=== PATIENT | male | born 1935 | race Caucasian/White ===

== ENCOUNTER 2016-10-03 12:11 | Emergency (ER) | payer MEDICARE, BC, MEDICAID ==
--- NOTE | 2016-10-03 14:22 | Emergency Department Record ---
History of Present Illness - General Chief Complaint: Chest Pain Stated Complaint: CHEST INJURY/FALL Time Seen by Provider: 10/03/16 12:39 Source: Patient, Family Mode of Arrival: Ambulatory Limitations: No limitations - History of Present Illness Initial Comments: pt fell into bathtub yesterday hitting his chest and sternum. granddaughter brought pt in for evaluation. pt reports minimal pain at this time. Onset/Timin -: Days(s) Onset: Other Pain Location: Substernal, Left chest Severity: Mild Severity scale (1-10): 1 Worsens With: Palpation Treatments Prior to Arrival: None - Related Data Home Medications Medication Instructions Recorded Confirmed Last Taken Aspirin [Aspirin EC] 81 mg PO DAILY 02/19/15 10/03/16 1 Day Ago Cyproheptadine HCl 4 mg PO BID 02/19/15 10/03/16 1 Day Ago Folic Acid 1 mg PO DAILY 02/19/15 10/03/16 1 Day Ago Hydrocortisone 0.1 mg PO DAILY 02/19/15 10/03/16 1 Day Ago Ibuprofen [Motrin 600Mg] 600 mg PO Q8H 02/19/15 10/03/16 1 Day Ago Methotrexate Sodium [Methotrexate] 2.5 mg PO DAILY 02/19/15 10/03/16 1 Day Ago Previous Rx's Medication Instructions Recorded Albuterol Sulfate [Proair Hfa] 1 - 2 puff IH .EVERY 4-6 HOURS PRN 02/19/15 #3 inhaler Docusate Sodium [Colace] 100 mg PO QHS #84 cap 05/14/15 Allergies Allergy/AdvReac Type Severity Reaction Status Date / Time No Known Drug Intolerances Allergy Unknown HYPERSENSIT Verified 10/03/16 12:26 IVITY Travel Screening - Travel/Exposure Within Last 30 Days Have you traveled within the last 30 days?: No - Travel/Exposure Within Last Year Have you traveled outside the [place] in the last year?: No - Additonal Travel Details Have you been exposed to anyone with a communicable illness?: No - Travel Symptoms Symptom Screening: None Review of Systems Reviewed: No additional complaints except as noted below Constitutional: Reports: As per HPI. Denies: Chills, Fever, Malaise, Night sweats, Weakness, Weight change Eyes: Reports: As per HPI. Denies: Eye discharge, Eye pain, Photophobia, Vision change ENT: Reports: As per HPI. Denies: Congestion, Dental pain, Ear pain, Epistaxis , Hearing loss, Throat pain Respiratory: Reports: As per HPI. Denies: Cough, Dyspnea, Hemoptysis, Stridor, Wheezes Cardiovascular: Reports: As per HPI. Denies: Arrhythmia, Chest pain, Dyspnea on exertion, Edema, Murmurs, Orthopnea, Palpitations, Paroxysmal nocturnal dyspnea, Rheumatic Fever, Syncope Endocrine: Reports: As per HPI. Denies: Fatigue, Heat or cold intolerance, Polydipsia, Polyuria Gastrointestinal: Reports: As per HPI. Denies: Abdominal pain, Constipation, Diarrhea, Hematemesis, Hematochezia, Melena, Nausea, Vomiting Genitourinary: Reports: As per HPI. Denies: Dysuria, Frequency, Hematuria, Incontinence, Retention, Testicular pain, Testicular mass, Urgency Musculoskeletal: Reports: As per HPI. Denies: Arthralgia, Back pain, Gout, Joint swelling, Myalgia, Neck pain Skin: Reports: As per HPI. Denies: Bruising, Change in color, Change in hair/ nails, Lesions, Pruritus, Rash Neurological: Reports: As per HPI. Denies: Abnormal gait, Confusion, Headache, Numbness, Paresthesias, Seizure, Tingling, Tremors, Vertigo, Weakness Psychiatric: Reports: As per HPI. Denies: Anxiety, Auditory hallucinations, Depression, Homicidal thoughts, Suicidal thoughts, Visual hallucinations Hematological/Lymphatic: Reports: As per HPI. Denies: Anemia, Blood Clots, Easy bleeding, Easy bruising, Swollen glands Past Medical History - SOCIAL HISTORY Smoking Status: Current every day smoker Alcohol Use: None Drug Use: None - RESPIRATORY Hx COPD: Yes Comment:: smoke too much - CARDIOVASCULAR Hx Irregular Heartbeat: Yes (WPW) - NEURO Comment:: [place] - GI Hx GI Disorders: No - Hx Genitourinary Disorders: No - ENDOCRINE Hx Endocrine Disorders: No - MUSCULOSKELETAL Hx Arthritis: Yes - PSYCH Hx Psych Problems: No - HEMATOLOGY/ONCOLOGY Hx Hematology/Oncology Disorders: No Family Medical History Any Significant Family History?: Yes Physical Exam - General General Appearance: Alert, Oriented x3, Cooperative, No acute distress - Head Head exam: Normal inspection - Eye Eye exam: Normal appearance, PERRL, EOMI Pupils: Normal accommodation - ENT ENT exam: Normal exam, Mucous membranes moist, Normal external ear exam, Normal orophraynx, TM's normal bilaterally Ear exam: Normal external inspection. negative: External canal tenderness Nasal Exam: Normal inspection. negative: Discharge, Sinus tenderness Mouth exam: Normal external inspection, Tongue normal Teeth exam: Normal inspection. negative: Dental caries Throat exam: Normal inspection. negative: Tonsillar erythema, Tonsillar exudate - Neck Neck exam: Normal inspection, Full ROM. negative: Tenderness - Respiratory Respiratory exam: Normal lung sounds bilaterally, Chest wall tenderness. negative: Respiratory distress - Cardiovascular Cardiovascular Exam: Regular rate, Normal rhythm, Normal heart sounds - GI/Abdominal GI/Abdominal exam: Soft, Normal bowel sounds. negative: Tenderness - Rectal Rectal exam: Deferred - exam: Deferred - Extremities Extremities exam: Normal inspection, Full ROM, Normal capillary refill. negative: Tenderness - Back Back exam: Reports: Normal inspection, Full ROM. Denies: Muscle spasm, Rash noted, Tenderness - Neurological Neurological exam: Alert, CN II-XII intact, Normal gait, Oriented X3 - Psychiatric Psychiatric exam: Normal affect, Normal mood - Skin Skin exam: Dry, Intact, Normal color, Warm Course Vital Signs 10/03/16 12:18 Temperature 98.3 F Pulse Rate 86 Respiratory 18 Rate Blood Pressure 124/59 Pulse Ox 93 L Medical Decision Making - Management Options MDM Management: Additional Work-up Planned (e.g. ADM/Transfer/OP Study) - Data Complexity [facility] Data: X-Ray Ordered and/or Reviewed - Radiology Data Radiology results: Report reviewed, Image reviewed Disposition Disposition: Discharge Clinical Impression: Lung nodule < 6cm on CT Contusion, chest wall Qualifiers: Encounter type: initial encounter Laterality: left Qualified Code(s): S20.212A - Contusion of left front wall of thorax, initial encounter Disposition: Home, Self-Care Condition: (1) Good Instructions: Contusion in Adults (ED), Pulmonary Nodules (ED) Additional Instructions: follow up with family doctor this week. have ct of chest next week. return sooner if worse Forms: Patient Portal Access
--- NOTE | 2016-10-07 14:50 | RADIOLOGY REPORT ---
EXAM: CHEST AND LEFT RIBS HISTORY: FELL HITTING LEFT CHEST ON BATHTUB, LEFT CHEST PAIN. TECHNIQUE: PA view of the chest and four oblique views of the left ribs were obtained. Comparison: Chest x-ray 03/19/14. Encounter: Initial. FINDINGS: Left sided pacemaker present. Diffuse lung lucency consistent with emphysema. New nodule at the right lung base measuring 16 mm. The left lung is clear. The cardiomediastinal silhouette is top normal in size with tortuous thoracic aorta. Osteopenia compromises bone detail. No obvious acutely displaced left rib fractures. IMPRESSION: 1. EMPHYSEMA WITH NEW 16 MM NODULE AT THE RIGHT LUNG BASE FOR WHICH PRIMARY MALIGNANCY IS NOT EXCLUDED. RECOMMEND NONEMERGENT CHEST CT. 2. THE LEFT LUNG IS CLEAR. 3. NO OBVIOUS ACUTELY DISPLACED LEFT RIB FRACTURES. JOB NUMBER: [id number] MTDD
--- NOTE | 2016-10-07 14:52 | RADIOLOGY REPORT ---
EXAM: STERNUM, TWO VIEWS HISTORY: FALL, CHEST INJURY, STERNAL PAIN. TECHNIQUE: Two views of the sternum were obtained. Comparison: Chest x-ray same day. FINDINGS: Osteopenia compromises bone detail. No gross sternal fracture. IMPRESSION: NEGATIVE STERNUM. JOB NUMBER: [id number] MTDD
== END 2016-10-03 14:24 | disposition home or self-care (01) ==
LOC: ER 12:11
DX: S20.212A Contusion of left front wall of thorax, initial encounter (principal); R91.1 Solitary pulmonary nodule; J44.9 Chronic obstructive pulmonary disease, unspecified; F17.210 Nicotine dependence, cigarettes, uncomplicated; W18.2XXA Fall in (into) shower or empty bathtub, initial encounter; Y92.002 Bathroom of unspecified non-institutional (private) residence as the place of occurrence of the external cause
CPT/HCPCS: 71120; 99283; 99284

== ENCOUNTER 2018-12-31 18:40 | Inpatient (IN) | payer MEDICARE, BC ==
[2018-12-31] MEDS ORDERED: IPRATROPIUM/ALBUTEROL (0.5MG/3MG) NEB INH ONE (18:45)
[2018-12-31] MEDS ORDERED: METHYLPREDNISOLONE PF 125MG/VIAL IVP ONE (18:45)
--- NOTE | 2018-12-31 18:51 | Emergency Department Record ---
History of Present Illness - General Stated Complaint: ELOY Time Seen by Provider: 12/31/18 18:45 Source: Patient, EMS Mode of Arrival: Stretcher Limitations: No limitations - History of Present Illness Initial Comments: 83 yo male with a significant past medical history for COPD presents to ED for evaluation of difficulty in breathing that began this morning. Patient denies home oxygen use, was found to be 80% at home. Patient did receive albuterol prior to arrival via EMS with improvement in his symptoms. Patient denies fevers, chills, or productive cough symptoms. Patient does not know who his PCP is in [place]. MD Complaint: Shortness of breath Onset/Timin -: Days(s) Severity: Moderate Consistency: Constant Improves With: Nothing Worsens With: Nothing Known History Of: COPD Associated Symptoms: Denies other symptoms Treatments Prior to Arrival: Bronchodilator - Related Data Home Oxygen Therapy: No Allergies Allergy/AdvReac Type Severity Reaction Status Date / Time No Known Drug Intolerances Allergy Unknown HYPERSENSIT Verified 12/31/18 18:49 IVITY Review of Systems Constitutional: Denies: Chills, Fever, Malaise, Night sweats Eyes: Denies: Eye discharge, Eye pain ENT: Denies: Congestion, Ear pain, Epistaxis Respiratory: Reports: Dyspnea. Denies: Hemoptysis Cardiovascular: Reports: Dyspnea on exertion. Denies: Chest pain, Edema Endocrine: Denies: Fatigue, Heat or cold intolerance Gastrointestinal: Denies: Abdominal pain, Nausea, Vomiting Genitourinary: Denies: Testicular pain, Testicular mass Musculoskeletal: Denies: Arthralgia, Back pain Skin: Denies: Bruising, Change in color Neurological: Denies: Abnormal gait, Confusion, Headache, Tingling, Tremors Psychiatric: Denies: Anxiety Hematological/Lymphatic: Denies: Anemia, Blood Clots Past Medical History - SOCIAL HISTORY Smoking Status: Current every day smoker Drug Use: None - RESPIRATORY Hx COPD: Yes Comment:: smoke too much - CARDIOVASCULAR Hx Irregular Heartbeat: Yes (WPW) - NEURO Comment:: [place] - GI Hx GI Disorders: No - Hx Genitourinary Disorders: No - ENDOCRINE Hx Endocrine Disorders: No - MUSCULOSKELETAL Hx Arthritis: Yes - PSYCH Hx Psych Problems: No - HEMATOLOGY/ONCOLOGY Hx Hematology/Oncology Disorders: No Physical Exam - General General Appearance: Alert, Oriented x3, Cooperative, Mild distress, Other ( Patient appears tachypnic, shallow breathing) Limitations: Other (Hard of hearing) - Head Head exam: Atraumatic, Normocephalic, Normal inspection Head exam detail: negative: Abrasion, Contusion, Jansen's sign, General tenderness, Hematoma, Laceration - Eye Eye exam: Normal appearance. negative: Conjunctival injection, Periorbital swelling, Periorbital tenderness, Scleral icterus - ENT Ear exam: negative: Auricular hematoma, Auricular trauma Nasal Exam: negative: Active bleeding, Discharge, Dried blood, Foreign body Mouth exam: negative: Drooling, Laceration, Muffled voice, Tongue elevation - Neck Neck exam: Normal inspection. negative: Tenderness - Respiratory Respiratory exam: Decreased breath sounds, Respiratory distress. negative: Prolonged expiratory, Rhonchi, Stridor, Wheezes - Cardiovascular Cardiovascular Exam: Regular rate, Normal rhythm, Normal heart sounds - GI/Abdominal GI/Abdominal exam: Soft. negative: Distended, Rebound, Rigid, Tenderness - Rectal Rectal exam: Deferred - exam: Deferred - Extremities Extremities exam: Normal inspection. negative: Pedal edema, Tenderness - Back Back exam: Denies: CVA tenderness (R), CVA tenderness (L) - Neurological Neurological exam: Alert, Normal gait, Oriented X3 - Psychiatric Psychiatric exam: Normal affect, Normal mood - Skin Skin exam: Normal color. negative: Abrasion Type of lesion: negative: abrasion Course - Reevaluation(s) Reevaluation #1: 12/31/18 19:02 EKG: Sinus tachycardia 108 LAD, RBBB ST changes V4-V5 Reevaluation #2: 12/31/18 19:34 Laboratory studies were reviewed and are grossly unremarkable for an acute process excpet: WBC 13.0, Glucose 206. CXR reviewed appears c/w COPD, RLL infiltrate. Zithromax and Rocephin ordered to infuse. Will admit for further evaluation at this time. Reevaluation #3: 12/31/18 19:52 Case was discussed with Yudy Triana NP, will accept admission at this time. Patient and his family members were updated on all results and the plan for admission as well. Medical Decision Making - Lab Data Result diagrams: 12/31/18 19:00 12/31/18 19:00 Disposition Disposition: Admit Clinical Impression: COPD exacerbation CAP (community acquired pneumonia) Qualifiers: Laterality: right Lung location: lower lobe of lung Qualified Code(s): J18.1 - Lobar pneumonia, unspecified organism Disposition: Still a Patient at [facility] Decision to Admit: Admit from ER Decision to Admit Date: 12/31/18 Decision to Admit Time: 19:36 Condition: (2) Stable Time of Disposition: 19:36 Quality - Quality Measures Quality Measures: N/A - Blood Pressure Screening Does Patient Have Any of the Following: No Blood Pressure Classification: Pre-Hypertensive BP Reading Systolic Measurement: 121 Diastolic Measurement: 63 Screening for High Blood Pressure: < Pre-Hypertensive BP, F/U Documented > [ [id number]] Pre-Hypertensive Follow-up Interventions: Referral to alternative/primary care provider.
[2018-12-31 19:10] LABS: HEMATOCRIT 42.5 % (42.0-52.0); HEMOGLOBIN 13.7 gm/dl (14.0-18.0); MEAN CELL VOLUME 102.2 fl (81-97); MEAN CORPUSCULAR HEMOGLOBIN 32.9 pg (27-33); MEAN CORPUSCULAR HGB CONC 32.2 g/dl (32-36); MEAN PLATELET VOLUME 11.7 fl (7.4-10.4); PLATELET COUNT 222 K/uL (130-400); RED BLOOD COUNT 4.16 M/uL (4.40-5.70); RED CELL DISTRIBUTION WIDTH 16.3 % (11.5-14.5)
[2018-12-31 19:21] LABS: BLOOD UREA NITROGEN 17 mg/dL (8-23); CREATININE 0.8 mg/dL (0.7-1.2); EST GLOMERULAR FILTRATION RATE > 60 mL/min
[2018-12-31 19:22] LABS: TOTAL PROTEIN 6.7 g/dL (6.6-8.7)
[2018-12-31 19:24] LABS: GLUCOSE,RANDOM 206 mg/dL (74-109)
[2018-12-31 19:26] LABS: ALBUMIN 3.4 g/dL (4.0-5.0); ALT/SGPT 9 U/L (<41); AST/SGOT 17 U/L (10.0-50.0)
[2018-12-31 19:27] LABS: ALKALINE PHOSPHATASE 63 U/L (40-129)
[2018-12-31] MEDS ORDERED: CEFTRIAXONE 1GM/50ML BAG 1 GM/50 ML BAG IVPB ONE (19:35)
[2018-12-31] MEDS ORDERED: AZITHROMYCIN 500 MG in 0.9 % SODIUM CHLORIDE 250ML 250 ML IVPB ONE (19:35)
[2018-12-31] MEDS ORDERED: ALBUTEROL SULFATE (0.083%) 2.5 MG/3 ML NEB INH PRN (20:41)
[2018-12-31] MEDS ORDERED: HYDROCODONE/APAP 7.5/325MG TABLET PO PRN (20:41)
[2018-12-31] MEDS ORDERED: ACETAMINOPHEN 500 MG TABLET PO PRN (20:41)
[2018-12-31] MEDS: 0.9 % SODIUM CHLORIDE 1000ML 1,000 ML IV PRN (21:28)
[2018-12-31] MEDS ORDERED: ATENOLOL 50 MG TABLET PO SCH (22:00)
[2018-12-31] MEDS: IPRATROPIUM/ALBUTEROL (0.5MG/3MG) NEB INH SCH (22:09)
[2019-01-01] MEDS: IPRATROPIUM/ALBUTEROL (0.5MG/3MG) NEB INH SCH ×5 (06:06→21:47)
[2019-01-01] MEDS: 0.9 % SODIUM CHLORIDE 1000ML 1,000 ML IV PRN ×2 (08:13→17:02)
[2019-01-01] MEDS: ATENOLOL 50 MG PO SCH ×2 (09:53→21:26)
[2019-01-01] MEDS: NICOTINE 21 MG/24 HOUR PATCH TD SCH (09:53)
[2019-01-01] MEDS ORDERED: METHYLPREDNISOLONE PF 125MG/VIAL IVP SCH (10:00)
[2019-01-01] MEDS ORDERED: AZITHROMYCIN 500 MG in 0.9 % SODIUM CHLORIDE 250ML 250 ML IVPB SCH (20:00)
--- NOTE | 2019-01-01 20:08 | History & Physical ---
History of Present Illness - Date of Service Date of Service for History & Physical: 01/01/19 - History of Present Illness Admitting Diagnosis: CAP. COPD. Hypoxia History of Present Illness: Alok Stone is an 83 y/o male brought to ED via EMS for disorientation, ELOY and hypoxia. Patient has a significant history of COPD and is a current every day smoker. Denies using home O2. Is a poor historian, information gathered with the help of his son Brice Stone. Past medical history includes COPD, current every day smoker, [place], WPW, OA. While in the ED SPO2 88% on 3L, WBC 13, CMP unremarkable besides glucose 206, AST/ALT normal, CXR RLL infiltrate and emphysematous changes. EKG LAD, RBBB. Admitted for IV antibiotics, oxygen supplementation, and case management. 01/01/19 0900: Patient resting comfortably in bed, in no distress. Currently on RA SPO2 92-94%. Does not remember coming to the ER or why. Is alert and oriented to person and place only. Is unable to give any medical history. 01/01/19 1100: Spoke with son Brice Stone ([phone]). Brice is DPOA for financial. Brice reports patient lives alone, "smokes like a chimney", and has been very depressed, more negative, and taking less care of himself over the last 2 weeks. He does state he has had short term memory issues for some time but has significantly worsened over the last 2 weeks. When he was at his house a few days prior he noted how unkept he was and needed a shower. Also spoke with daughter, Nasreen Martinez, who is the DPOA for medical issues and confirms what Brice has been describing. To her knowledge noone has deemed her dad incompetent to make his own decisions and has been doing ok living alone until the last 2 weeks. Is concerned regarding how safe discharging home alone will be. Parish Stone is a child ([phone]) as well as Emily Stone. He arrived with 2 medication bottles, Atenolol and Methotrexate. PCP: Dr Devan Gillette Cardiology: Dr Domínguez Travel Screening - Travel/Exposure Within Last 30 Days Have you traveled within the last 30 days?: No - Travel/Exposure Within Last Year Have you traveled outside the [place] in the last year?: No - Additonal Travel Details Have you been exposed to anyone with a communicable illness?: No - Travel Symptoms Symptom Screening: Weakness, Fatigue Review of Systems Constitutional: Denies: Chills, Fever, Malaise, Night sweats Eyes: Denies: Eye discharge, Eye pain ENT: Denies: Congestion, Ear pain, Epistaxis Respiratory: Denies: Dyspnea, Hemoptysis Cardiovascular: Denies: Chest pain, Dyspnea on exertion, Edema Endocrine: Denies: Fatigue, Heat or cold intolerance Gastrointestinal: Denies: Abdominal pain, Nausea, Vomiting Genitourinary: Denies: Testicular pain, Testicular mass Musculoskeletal: Denies: Arthralgia, Back pain Skin: Denies: Bruising, Change in color Neurological: Denies: Abnormal gait, Confusion, Headache, Tingling, Tremors Psychiatric: Denies: Anxiety Hematological/Lymphatic: Denies: Anemia, Blood Clots Past Medical History - SOCIAL HISTORY Smoking Status: Current every day smoker - RESPIRATORY Hx Respiratory Disorders: Yes Hx COPD: Yes Comment:: smoke too much - CARDIOVASCULAR Hx Cardio Disorders: Yes Hx Irregular Heartbeat: Yes (WPW) - NEURO Hx Neuro Disorders: Yes Comment:: [place] - GI Hx GI Disorders: No - Hx Genitourinary Disorders: No - ENDOCRINE Hx Endocrine Disorders: No - MUSCULOSKELETAL Hx Musculoskeletal Disorders: Yes Hx Arthritis: Yes - PSYCH Hx Psych Problems: No - HEMATOLOGY/ONCOLOGY Hx Hematology/Oncology Disorders: No Family Medical History Any Significant Family History?: No H&P Meds/Allergies - Allergies Allergies: Allergies Allergy/AdvReac Type Severity Reaction Status Date / Time No Known Drug Intolerances Allergy Unknown HYPERSENSIT Verified 12/31/18 18:49 IVITY - Active Medications Active Medications: Current Medications Acetaminophen (Tylenol 500mg Tab) 1,000 mg PO Q6H PRN PRN Reason: PAIN - MILD(1-4)/FEVER Hydrocodone Bitart/Acetaminophen ([place] 7.5mg/325mg) 1 each PO BID PRN PRN Reason: PAIN - MOD TO SEVERE (5-10) Albuterol Sulfate (Albuterol Sulfate) 2.5 mg INH RESP.Q2H PRN PRN Reason: DIFFICULTY IN BREATHING Albuterol/Ipratropium (Duoneb) 3 ml INH RESP.Q4H.[facility] Admin: 01/01/19 18:05 Dose: 3 ml Sodium Chloride () 1,000 mls @ 100 mls/hr IV .Q10H PRN PRN Reason: LARGE VOLUME IV Last Admin: 01/01/19 17:02 Dose: 100 mls/hr Azithromycin 500 mg/ Sodium (Chloride) 250 mls @ 250 mls/hr IVPB Q24H [facility] Stop: 01/06/19 20:01 Ceftriaxone Sodium 1 gm/ (Sodium Chloride) 100 mls @ 100 mls/hr IVPB Q24H [facility] Stop: 01/06/19 21:01 Methylprednisolone Sodium Succinate (Solu-Medrol) 125 mg IVP DAILY [facility] Last Admin: 01/01/19 09:53 Dose: 125 mg Nicotine (Nicotine 21mg) 1 patch TD DAILY [facility] Last Admin: 01/01/19 09:53 Dose: 1 patch Patient Own Med: Methotrexate 2.5 Mg Tab 8 each PO WEEKLY [facility] Patient Own Med: (Atenolol 50 Mg Tab) 1 each PO BID [facility] Last Admin: 01/01/19 09:53 Dose: 1 each Physical Exam - Vital Signs Vital Signs: Vital Signs - Last 24 Hrs Temp Pulse Pulse Resp BP BP Pulse Ox 01/01/19 18:05 74 18 92 L 01/01/19 16:00 98.1 F 74 16 100/57 94 L 01/01/19 13:55 71 18 92 L 01/01/19 09:52 70 18 93 L 01/01/19 08:59 24 01/01/19 08:00 97.3 F L 74 16 107/47 93 L 01/01/19 06:06 70 20 96 01/01/19 06:00 97.6 F 73 18 98/61 91 L 12/31/18 22:10 77 24 96 12/31/18 21:31 103/58 12/31/18 21:00 77 24 12/31/18 20:25 98.1 F 97 H 22 94/49 95 - General General Appearance: Alert, Oriented x3, Cooperative Limitations: Other (Hard of hearing) - Head Head exam: Atraumatic, Normocephalic, Normal inspection Head exam detail: negative: Abrasion, Contusion, Jansen's sign, General tenderness, Hematoma, Laceration - Eye Eye exam: Normal appearance. negative: Conjunctival injection, Periorbital swelling, Periorbital tenderness, Scleral icterus - ENT Ear exam: negative: Auricular hematoma, Auricular trauma Nasal Exam: negative: Active bleeding, Discharge, Dried blood, Foreign body Mouth exam: negative: Drooling, Laceration, Muffled voice, Tongue elevation - Neck Neck exam: Normal inspection. negative: Tenderness - Respiratory Respiratory exam: Decreased breath sounds. negative: Prolonged expiratory, Respiratory distress, Rhonchi, Stridor, Wheezes - Cardiovascular Cardiovascular Exam: Regular rate, Normal rhythm, Normal heart sounds Peripheral Pulses: 2+: Dorsalis Pedis (R), Dorsalis Pedis (L) - GI/Abdominal GI/Abdominal exam: Soft, Normal bowel sounds. negative: Distended, Rebound, Rigid, Tenderness - Rectal Rectal exam: Deferred - exam: Deferred - Extremities Extremities exam: Normal inspection. negative: Pedal edema, Tenderness - Back Back exam: Denies: CVA tenderness (R), CVA tenderness (L) - Neurological Neurological exam: Alert, Normal gait, Other (oriented to person and place only) - Psychiatric Psychiatric exam: Normal affect, Normal mood - Skin Skin exam: Normal color. negative: Abrasion Type of lesion: negative: abrasion Results - Labs Result Diagrams: 12/31/18 19:00 12/31/18 19:00 - Imaging and Cardiology Chest x-ray Status: Report reviewed (right lower lobe infiltrate, emphysematous changes) VTE H&P Assessment - Risk for VTE Risk for VTE: Yes Risk Level: Moderate Risk Assessment Date: 01/01/19 Risk Assessment Time: 20:29 VTE Orders Placed or Will Be Placed: Yes Plan - Inpatient Certification Inpatient Certification: Admit to inpatient care: Based on my medical assessment, after consideration of patient's risk factors (age, co-morbidities and patient presenting symptoms and acuity), I expect that this patient will remain in the hospital greater than or equal to two midnights and that the services needed warrant inpatient care because: Patient Risk Factors: [advanced age, cognitive impairment] Estimated length of stay: []48-72 hours The patient may reasonably be expected to be discharged or transferred to a hospital within 96 hours after admission to [facility]. Services needed: [IV antibiotics, supplemental oxygen, case management] Post hospital care (if known): [] I certify that my determination is in accordance with my understanding of Medicare requirements for reasonable and necessary inpatient services. 01/01/19 20:29 - Detailed Diagnosis and Plan (1) Right lower lobe pneumonia Current Visit: Yes Status: Acute Qualifiers: Pneumonia type: due to unspecified organism Qualified Code(s): J18.1 - Lobar pneumonia, unspecified organism Base Code: J18.1 - LOBAR PNEUMONIA, UNSPECIFIED ORGANISM Comment: 01/01/19 - CXR right lower lobe infiltrate, emphysematous changes - Does not use home O2 - Rocephin 1gm BID and Azithromycin 500mg QD - Supplemental oxygen to keep 88-92% - Solumedrol 125mg QD, will transition to PO in the am - Albuterol 2.5mg Q2hr PRN - Duoneb Q4hr WA - Telemetry- NSR, RBBB (2) COPD exacerbation Current Visit: No Status: Acute Base Code: J44.1 - CHRONIC OBSTRUCTIVE PULMONARY DISEASE W (ACUTE) EXACERBATION Comment: 01/01/19 - See above (3) Cognitive impairment Current Visit: Yes Status: Acute Base Code: R41.89 - OTH SYMPTOMS AND SIGNS W COGNITIVE FUNCTIONS AND AWARENESS Comment: 01/01/19 - Multifactoral- most likely vascular in nature from smoking history, emphysea, and acute illness - Does have medical and financial DPOA. Will need to assess cognition further after 24 hours of treatment to see if any improvement - May need 2 provider statement for incompacitation - Case management referral - Will have family bring in all his medication bottles for a full reconcilliation (4) Full code status Current Visit: Yes Status: Acute Base Code: Z78.9 - OTHER SPECIFIED HEALTH STATUS Comment: 01/01/19 (5) DVT prophylaxis Current Visit: Yes Status: Acute Base Code: [id number] - Comment: 01/01/19 - Nursing to encourage frequent ambulation
[2019-01-01] MEDS ORDERED: CEFTRIAXONE SODIUM 1 GM in 0.9 % SODIUM CHLORIDE 100ML 100 ML IVPB SCH (21:00)
[2019-01-01] MEDS ORDERED: ATENOLOL 50 MG TABLET PO SCH (22:00)
[2019-01-02] MEDS: IPRATROPIUM/ALBUTEROL (0.5MG/3MG) NEB INH SCH ×2 (05:59→10:43)
[2019-01-02 06:50] LABS: BASO % 0.1 % (0-6); EOS % 0.1 % (0-6); HEMATOCRIT 36.7 % (42.0-52.0); HEMOGLOBIN 11.1 gm/dl (14.0-18.0); LYMPH % 2.8 % (16-45); MEAN CORPUSCULAR HEMOGLOBIN 31.4 pg (27-33); MEAN CORPUSCULAR HGB CONC 30.2 g/dl (32-36); MEAN PLATELET VOLUME 11.2 fl (7.4-10.4); MONO % 4.3 % (0-9); PLATELET COUNT 187 K/uL (130-400); RED BLOOD COUNT 3.53 M/uL (4.40-5.70); RED CELL DISTRIBUTION WIDTH 16.2 % (11.5-14.5); WHITE BLOOD COUNT W/O DIFF 19.2 K/uL (4.2-12.2)
[2019-01-02 07:08] LABS: BLOOD UREA NITROGEN 15 mg/dL (8-23); CREATININE 0.6 mg/dL (0.7-1.2); EST GLOMERULAR FILTRATION RATE > 60 mL/min; GLUCOSE,RANDOM 113 mg/dL (74-109)
[2019-01-02 07:33] LABS: ANISOCYTOSIS 1+; PLATELET ESTIMATE NORMAL (NORMAL)
[2019-01-02] MEDS ORDERED: PREDNISONE 20 MG TAB PO SCH (08:00)
--- NOTE | 2019-01-02 08:28 | RADIOLOGY REPORT ---
EXAM: CHEST HISTORY: PATIENT HAS COPD. DIFFICULTY BREATHING. TECHNIQUE: A single AP portable view of the chest was provided along with the comparison study dated 10/03/16. FINDINGS: The cardiomediastinal silhouette is within normal limits for size and contour. Left anterior chest wall pacemaker is unchanged with respect to the prior examination. Tortuosity of the thoracic aorta is noted. Emphysematous changes are identified bilaterally. In the interval there has been the developmental of a right lower lobe interstitial infiltrate. This finding suggests superimposed pneumonia. IMPRESSION: RIGHT LOWER LOBE INTERSTITIAL INFILTRATE IS SUSPECTED DISCUSSED ABOVE. PNEUMONIA IS SUSPECTED. FOLLOW-UP PA AND LATERAL VIEWS OF THE CHEST CAN BE OBTAINED UNTIL RESOLUTION OF FINDINGS. JOB NUMBER: [id number] [facility]
[2019-01-02] MEDS: NICOTINE 21 MG/24 HOUR PATCH TD SCH (09:20)
[2019-01-02] MEDS: ATENOLOL 50 MG PO SCH (09:23)
[2019-01-02] MEDS ORDERED: METHOTREXATE 2.5 MG PO SCH (10:00)
--- NOTE | 2019-01-02 10:25 | Discharge Summary ---
Providers Discharge Summary Date: 01/02/19 Date of admission: 12/31/18 19:58 Expected Date of Discharge: 01/02/19 Attending physician: SANDRA ROMAN Consults: Consult Orders 01/01/19 12:31 Consult - Case Management Now Comment: Reason For Exam: safety of pt at home-lives alone-some dementia Physical Exam - Vital Signs Vital Signs: Vital Signs - Last 24 Hrs Temp Pulse Pulse Resp BP Pulse Ox 01/02/19 08:30 20 01/02/19 08:00 97.6 F 68 16 120/76 92 L 01/02/19 05:59 80 20 93 L 01/01/19 21:47 88 20 92 L 01/01/19 21:45 98.4 F 91 H 18 105/53 93 L 01/01/19 20:40 74 18 01/01/19 18:05 74 18 92 L 01/01/19 16:00 98.1 F 74 16 100/57 94 L 01/01/19 13:55 71 18 92 L - General General Appearance: Alert, Oriented x3, Cooperative Limitations: Other (Hard of hearing) - Head Head exam: Atraumatic, Normocephalic, Normal inspection Head exam detail: negative: Abrasion, Contusion, Jansen's sign, General tenderness, Hematoma, Laceration - Eye Eye exam: Normal appearance. negative: Conjunctival injection, Periorbital swelling, Periorbital tenderness, Scleral icterus - ENT Ear exam: negative: Auricular hematoma, Auricular trauma Nasal Exam: negative: Active bleeding, Discharge, Dried blood, Foreign body Mouth exam: negative: Drooling, Laceration, Muffled voice, Tongue elevation - Neck Neck exam: Normal inspection. negative: Tenderness - Respiratory Respiratory exam: Decreased breath sounds. negative: Prolonged expiratory, Respiratory distress, Rhonchi, Stridor, Wheezes - Cardiovascular Cardiovascular Exam: Regular rate, Normal rhythm, Normal heart sounds Peripheral Pulses: 2+: Dorsalis Pedis (R), Dorsalis Pedis (L) - GI/Abdominal GI/Abdominal exam: Soft, Normal bowel sounds. negative: Distended, Rebound, Rigid, Tenderness - Rectal Rectal exam: Deferred - exam: Deferred - Extremities Extremities exam: Normal inspection. negative: Pedal edema, Tenderness - Back Back exam: Denies: CVA tenderness (R), CVA tenderness (L) - Neurological Neurological exam: Alert, Normal gait, Other (oriented to person and place only) - Psychiatric Psychiatric exam: Normal affect, Normal mood - Skin Skin exam: Normal color. negative: Abrasion Type of lesion: negative: abrasion Hospitalization - Hospitalization Admission Diagnosis: CAP. COPD. Hypoxia - Problem List/Discharge Diagnosis (1) Right lower lobe pneumonia Status: Acute Discharge Diagnosis: Pneumonia type: due to unspecified organism Qualified Code(s): J18.1 - Lobar pneumonia, unspecified organism Base Code: J18.1 - LOBAR PNEUMONIA, UNSPECIFIED ORGANISM Comment: 01/02/19 - CXR right lower lobe infiltrate, emphysematous changes - Does not use home O2 - Rocephin 1gm BID and Azithromycin 500mg QD - Supplemental oxygen to keep 88-92% - Solumedrol 125mg QD, will transition to PO in the am - Albuterol 2.5mg Q2hr PRN - Duoneb Q4hr WA - Telemetry- NSR, RBBB (2) COPD exacerbation Status: Acute Base Code: J44.1 - CHRONIC OBSTRUCTIVE PULMONARY DISEASE W ( ACUTE) EXACERBATION Comment: 01/02/19 - See above (3) Cognitive impairment Status: Acute Base Code: R41.89 - OTH SYMPTOMS AND SIGNS W COGNITIVE FUNCTIONS AND AWARENESS Comment: 01/02/19 - Multifactoral- most likely vascular in nature from smoking history, emphysea, and acute illness - Does have medical and financial DPOA. Will need to assess cognition further after 24 hours of treatment to see if any improvement - May need 2 provider statement for incompacitation - Case management referral - Will have family bring in all his medication bottles for a full reconcilliation (4) Full code status Status: Acute Base Code: Z78.9 - OTHER SPECIFIED HEALTH STATUS Comment: 01/02 (5) DVT prophylaxis Status: Acute Base Code: [id number] - Comment: 01/02/19 - Nursing to encourage frequent ambulation - Hospitalization Course Disposition: Home Health Service Hospital Course: Alok Stone is an 83 y/o male brought to ED via EMS for disorientation, ELOY and hypoxia. Patient has a significant history of COPD and is a current every day smoker. Denies using home O2. Is a poor historian, information gathered with the help of his son Brice Stone. Past medical history includes COPD, current every day smoker, IROQUOIS, WPW, OA. While in the ED SPO2 88% on 3L, WBC 13, CMP unremarkable besides glucose 206, AST/ALT normal, CXR RLL infiltrate and emphysematous changes. EKG LAD, RBBB. Admitted for IV antibiotics, oxygen supplementation, and case management. 01/01/19 0900: Patient resting comfortably in bed, in no distress. Currently on RA SPO2 92-94%. Does not remember coming to the ER or why. Is alert and oriented to person and place only. Is unable to give any medical history. 01/01/19 1100: Spoke with son Brice Stone ([phone]). Brice is DPOA for financial. Brice reports patient lives alone, "smokes like a chimney", and has been very depressed, more negative, and taking less care of himself over the last 2 weeks. He does state he has had short term memory issues for some time but has significantly worsened over the last 2 weeks. When he was at his house a few days prior he noted how unkept he was and needed a shower. Also spoke with daughter, Nasreen Martinez, who is the DPOA for medical issues and confirms what Brice has been describing. To her knowledge noone has deemed her dad incompetent to make his own decisions and has been doing ok living alone until the last 2 weeks. Is concerned regarding how safe discharging home alone will be. Parish Stone is a child ([phone]) as well as Emily Stone. He arrived with 2 medication bottles, Atenolol and Methotrexate. 01/02/19: Hospital course unremarkable, responded well to treatment. Does have good family support at home. Strong discharge in place- see case management notes. PCP: Dr Devan Gillette Cardiology: Dr Domínguez Procedures: Imaging and X-Rays 12/31/18 18:45 CHEST 1 VIEW [RAD] Stat Cardiology Procedures 12/31/18 18:46 EKG NOW 12/31/18 20:41 Guidance Services Coordinator .Continuous Abnormal Labs: Abnormal Lab Results 12/31/18 12/31/18 01/02/19 Range/Units 19:00 19:00 06:15 WBC 13.0 H 19.2 H (4.2-12.2) K/uL RBC 4.16 L 3.53 L (4.40-5.70) M/uL Hgb 13.7 L 11.1 L (14.0-18.0) gm/dl Hct 36.7 L (42.0-52.0) % MCV 102.2 H 104.0 H (81-97) fl MCHC 30.2 L (32-36) g/dl RDW 16.3 H 16.2 H (11.5-14.5) % MPV 11.7 H 11.2 H (7.4-10.4) fl Neutrophils % 95.0 H (47-80) % Lymphocytes % 2.8 L (16-45) % Lymphocytes 8.0 L 2.0 L (16-45) % Monocytes 10.0 H (0-9) % Creatinine (0.7-1.2) mg/dL Random Glucose 206 H (74-109) mg/dL Calcium (8.8-10.2) mg/dL Albumin 3.4 L (4.0-5.0) g/dL Albumin/Globulin Ratio 1.0 L (1.1-1.8) 01/02/19 Range/Units 06:15 WBC (4.2-12.2) K/uL RBC (4.40-5.70) M/uL Hgb (14.0-18.0) gm/dl Hct (42.0-52.0) % MCV (81-97) fl MCHC (32-36) g/dl RDW (11.5-14.5) % MPV (7.4-10.4) fl Neutrophils % (47-80) % Lymphocytes % (16-45) % Lymphocytes (16-45) % Monocytes (0-9) % Creatinine 0.6 L (0.7-1.2) mg/dL Random Glucose 113 H (74-109) mg/dL Calcium 8.6 L (8.8-10.2) mg/dL Albumin (4.0-5.0) g/dL Albumin/Globulin Ratio (1.1-1.8) Condition at Discharge: (2) Stable Discharge Medications - Discharge Medications Prescriptions: Azithromycin 250 mg PO DAILY #4 tablet Prednisone [Prednisone 20Mg] 50 mg PO DAILYWM 5 Days #62.5 tab Home Medications: Ambulatory Orders Methotrexate Sodium [Methotrexate] 20 mg PO DAILY 02/19/15 [Last Taken 12/30/18] Acetaminophen [Tylenol 500Mg Tab] 1,000 mg PO Q6H PRN tablet 01/02/19 [Last Taken Unknown] Azithromycin 250 mg PO DAILY #4 tablet 01/02/19 [Last Taken Unknown] Prednisone [Prednisone 10Mg] 10 mg PO DAILY #0 01/02/19 [Last Taken Unknown] Prednisone [Prednisone 20Mg] 50 mg PO DAILYWM 5 Days #62.5 tab 01/02/19 [Last Taken Unknown] Discharge Plan - Discharge Instructions Activity at Discharge: Increase Activity as Tolerated Diet at Discharge: Regular Diet Instructions: Viral Pneumonia (DC), Community Acquired Pneumonia (DC) Additional Instructions: -[facility] will see you at home. They are available 29/03 by phone at [phone]. -A referral has been made to the [address] [facility] for the Medicaid Waiver program. They will contact you if you qualify for services. [place] [address] can be contacted at [phone]. -A referral has been made to [facility] on [facility] for in-home chore assistance. They will contact you if you qualify for services. [facility] on Aging can be contacted at [phone] -Please see your PCP, Devan Gillette, within one week of discharge. Quality Measures - Quality Measures Quality Measures: Advance Directives, Documentation of Current Medications in Medical Record, Elder Maltreatment Screen and Follow-Up Plan, Screening for High Blood Pressure and F/U Documented - Current Medications Quality Measure: Measure #130: Documentation of Current Medications Documentation of Current Medications: <Current Medications Documented/Reviewed> [J5517] - Blood Pressure Screening Quality Measure: Screening for High Blood Pressure and Follow-Up Documented Does Patient Have Any of the Following: No, Active Dx of HTN Blood Pressure Classification: Normal BP Reading Systolic Measurement: 103 Diastolic Measurement: 58 Screening for High Blood Pressure: < Normal BP, F/U Not Required > [P3117] - Advance Directives Quality Measure: Measure #47: Care Plan Advance Directives Established: No Advance Directives Information Provided To Patient: No Advance Directives on File: No Living Will: Yes Power of Receptionist Airline Lounge: Yes Power of Receptionist Airline Lounge Name: russ Roger Advance Care Planning: <Care Plan/Decision Maker Documented; Discussed & Documented> [0364F] - Elder Abuse Suspicion Index Screening: Elder Abuse Suspicion Index Screening Rely on people for bathing, dressing, shopping, banking, etc: Yes Prevented from getting food, clothes, medication, etc: No Made to feel shamed or threatened by someone: No Forced to sign papers or use money against will: No Feel afraid, touched in ways not wanted or hurt physically: No Poor eye contact, withdrawn, malnourished, cuts or bruises: No Screening Result: Negative result EASI Reference Information: Praveena BLUE, Karen C, Elva Enamorado, Nenita Leach.Development and validation of a tool to assist physicians identification of elder abuse: The Elder Abuse Suspicion Index (EASI ). Journal of Elder Abuse and Neglect, 2008; 20 (3): 276-300. - Elder Maltreatment Screen Quality Measures: Elder Maltreatment Screen and Follow-Up Plan Elder Maltreatment Screen: <Negative, No Follow-Up Plan Required> [G8734]
[2019-01-02] MEDS ORDERED: CEFTRIAXONE 1GM/50ML BAG 1 GM/50 ML BAG IVPB SCH (20:00)
== END 2019-01-02 11:15 | disposition home health service (06) | DRG 194 ==
LOC: ER 18:40 → MEDSURG 19:58
PROVIDERS: ADMIT Internal Medicine; ATTEND Internal Medicine
DX: J18.9 Pneumonia, unspecified organism (principal); J44.1 Chronic obstructive pulmonary disease with (acute) exacerbation; R09.02 Hypoxemia; R41.89 Other symptoms and signs involving cognitive functions and awareness; Z91.14 Patient's other noncompliance with medication regimen; H91.90 Unspecified hearing loss, unspecified ear; I45.6 Pre-excitation syndrome; M19.90 Unspecified osteoarthritis, unspecified site; Z95.0 Presence of cardiac pacemaker; F17.210 Nicotine dependence, cigarettes, uncomplicated; Z66 Do not resuscitate
CPT/HCPCS: 71045; 80048; 80053; 84145; 84484; 85027; 93005; 93010; 94640; 94760; 94761; 96374; 96375; 99223; 99239; 99285; J0456; J0696; J2930; J7050; J7512

== ENCOUNTER 2019-02-15 18:55 | Emergency (ER) | payer MEDICARE, BC ==
[2019-02-15] MEDS ORDERED: 0.9 % SODIUM CHLORIDE 1,000 ML BAG IV ONE (19:07)
--- NOTE | 2019-02-15 19:13 | Emergency Department Record ---
History of Present Illness - General Chief complaint: Rectal bleeding Stated complaint: RECTAL BLEEDING Time Seen by Provider: 02/15/19 18:59 Source: Patient, Family, EMS Mode of Arrival: EMS Limitations: No limitations - History of Present Illness Initial comments: pt brought in for large rectal bleed tonight. he got up fot dinner and relative heard a thud in the bathroom and found him on the floor with a large amt of blood and clots. MD complaint: Gross hematochezia Quality: Painless Consistency: Intermittent Worsens with: Bowel movement Associated Symptoms: Weakness - Related Data Home Medications Medication Instructions Recorded Confirmed Last Taken Escitalopram Oxalate [Lexapro] 10 mg PO DAILY 02/15/19 02/15/19 02/15/19 Previous Rx's Medication Instructions Recorded Acetaminophen [Tylenol 500Mg Tab] 1,000 mg PO Q6H PRN tablet 01/02/19 Azithromycin 250 mg PO DAILY #4 tablet 01/02/19 Prednisone [Prednisone 10Mg] 10 mg PO DAILY #0 01/02/19 Prednisone [Prednisone 20Mg] 50 mg PO DAILYWM 5 Days #62.5 tab 01/02/19 Allergies Allergy/AdvReac Type Severity Reaction Status Date / Time No Known Drug Intolerances Allergy Unknown HYPERSENSIT Verified 02/15/19 19:04 IVITY Review of Systems Reviewed: No additional complaints except as noted below Constitutional: Reports: As per HPI. Denies: Chills, Fever, Malaise, Night sweats, Weakness, Weight change Eyes: Reports: As per HPI. Denies: Eye discharge, Eye pain, Photophobia, Vision change ENT: Reports: As per HPI. Denies: Congestion, Dental pain, Ear pain, Epistaxis, Hearing loss, Throat pain Respiratory: Reports: As per HPI. Denies: Cough, Dyspnea, Hemoptysis, Stridor, Wheezes Cardiovascular: Reports: As per HPI. Denies: Arrhythmia, Chest pain, Dyspnea on exertion, Edema, Murmurs, Orthopnea, Palpitations, Paroxysmal nocturnal dyspnea, Rheumatic Fever, Syncope Endocrine: Reports: As per HPI. Denies: Fatigue, Heat or cold intolerance, Polydipsia, Polyuria Gastrointestinal: Reports: As per HPI, Hematochezia. Denies: Abdominal pain, Constipation, Diarrhea, Hematemesis, Melena, Nausea, Vomiting Genitourinary: Reports: As per HPI. Denies: Dysuria, Frequency, Hematuria, Incontinence, Retention, Testicular pain, Testicular mass, Urgency Musculoskeletal: Reports: As per HPI. Denies: Arthralgia, Back pain, Gout, Joint swelling, Myalgia, Neck pain Skin: Reports: As per HPI. Denies: Bruising, Change in color, Change in hair/ nails, Lesions, Pruritus, Rash Neurological: Reports: As per HPI. Denies: Abnormal gait, Confusion, Headache, Numbness, Paresthesias, Seizure, Tingling, Tremors, Vertigo, Weakness Psychiatric: Reports: As per HPI. Denies: Anxiety, Auditory hallucinations, Depression, Homicidal thoughts, Suicidal thoughts, Visual hallucinations Hematological/Lymphatic: Reports: As per HPI. Denies: Anemia, Blood Clots, Easy bleeding, Easy bruising, Swollen glands Past Medical History - SOCIAL HISTORY Smoking Status: Current every day smoker - RESPIRATORY Hx Respiratory Disorders: Yes Hx COPD: Yes Comment:: smoke too much - CARDIOVASCULAR Hx Cardio Disorders: Yes Hx Irregular Heartbeat: Yes (WPW) - NEURO Hx Neuro Disorders: Yes Comment:: IONE - GI Hx GI Disorders: No - Hx Genitourinary Disorders: No - ENDOCRINE Hx Endocrine Disorders: No - MUSCULOSKELETAL Hx Musculoskeletal Disorders: Yes Hx Arthritis: Yes - PSYCH Hx Psych Problems: No - HEMATOLOGY/ONCOLOGY Hx Hematology/Oncology Disorders: No Physical Exam - General General Appearance: Alert, Oriented x3, Cooperative, Mild distress - Head Head exam: Normal inspection - Eye Eye exam: Normal appearance, PERRL, EOMI Pupils: Normal accommodation - ENT ENT exam: Normal exam, Mucous membranes moist, Normal external ear exam, Normal orophraynx Ear exam: Normal external inspection. negative: External canal tenderness Nasal Exam: Normal inspection. negative: Discharge, Sinus tenderness Mouth exam: Normal external inspection, Tongue normal Teeth exam: Normal inspection. negative: Dental caries Throat exam: Normal inspection. negative: Tonsillar erythema, Tonsillar exudate - Neck Neck exam: Normal inspection, Full ROM. negative: Tenderness - Respiratory Respiratory exam: Normal lung sounds bilaterally. negative: Respiratory distress - Cardiovascular Cardiovascular Exam: Regular rate, Normal rhythm, Normal heart sounds - GI/Abdominal GI/Abdominal exam: Soft, Normal bowel sounds. negative: Tenderness - Rectal Rectal exam: Black stool, Bloody stool - exam: Deferred - Extremities Extremities exam: Normal inspection, Full ROM, Normal capillary refill. negative: Tenderness - Back Back exam: Reports: Normal inspection, Full ROM. Denies: Muscle spasm, Rash noted, Tenderness - Neurological Neurological exam: Alert, CN II-XII intact, Normal gait, Oriented X3 - Psychiatric Psychiatric exam: Normal affect, Normal mood - Skin Skin exam: Dry, Intact, Pallor, Warm Medical Decision Making - Lab Data Result diagrams: 02/15/19 19:05 02/15/19 19:05 Disposition Disposition: Transfer Clinical Impression: GI bleeding Qualifiers: GI bleed type/associated pathology: unspecified gastrointestinal hemorrhage type Qualified Code(s): K92.2 - Gastrointestinal hemorrhage, unspecified Disposition: Acute Care Hospital Transfer Transfer To: [facility] Reason For Transfer: needs GI dr Accepting Physician: dr robin Time Discussed w/Accepting Physician: 19:40 Forms: Patient Portal Access Quality - Quality Measures Quality Measures: N/A - Blood Pressure Screening Does Patient Have Any of the Following: No Blood Pressure Classification: Normal BP Reading Systolic Measurement: 93 Diastolic Measurement: 47 Screening for High Blood Pressure: < Normal BP, F/U Not Required > [G8783]
[2019-02-15 19:16] LABS: ABSOLUTE NEUTROPHIL COUNT 9.21; HEMATOCRIT 32.9 % (42.0-52.0); HEMOGLOBIN 9.8 gm/dl (14.0-18.0); MEAN CELL VOLUME 104.1 fl (81-97); MEAN CORPUSCULAR HGB CONC 29.8 g/dl (32-36); PLATELET COUNT 216 K/uL (130-400); RED BLOOD COUNT 3.16 M/uL (4.40-5.70); RED CELL DISTRIBUTION WIDTH 18.1 % (11.5-14.5); WHITE BLOOD COUNT W/O DIFF 9.6 K/uL (4.2-12.2)
[2019-02-15 19:26] LABS: BLOOD UREA NITROGEN 58 mg/dL (8-23); CREATININE 0.7 mg/dL (0.7-1.2); EST GLOMERULAR FILTRATION RATE > 60 mL/min
[2019-02-15 19:27] LABS: TOTAL PROTEIN 4.5 g/dL (6.6-8.7)
[2019-02-15 19:29] LABS: GLUCOSE,RANDOM 179 mg/dL (74-109)
[2019-02-15 19:31] LABS: ALBUMIN 2.8 g/dL (4.0-5.0); ALKALINE PHOSPHATASE 42 U/L (40-129); ALT/SGPT 9 U/L (<41); AST/SGOT 13 U/L (10.0-50.0)
[2019-02-15 19:36] LABS: BILIRUBIN,DIRECT < 0.2 mg/dL (0-0.3); INR 1.1; PARTIAL THROMBOPLASTIN TIME 21.3 SECONDS (24.5-39.1); PROTHROMBIN TIME (PATIENT) 10.8 SECONDS (9.5-12.1)
[2019-02-15 20:38] LABS: ABO GROUP B; ANTIBODY SCREEN NEGATIVE (NEGATIVE); RH TYPE POSITIVE
== END 2019-02-15 19:47 | disposition short-term general hospital (02) ==
LOC: ER 18:55
DX: K92.2 Gastrointestinal hemorrhage, unspecified (principal); F17.210 Nicotine dependence, cigarettes, uncomplicated; Z95.0 Presence of cardiac pacemaker; I45.6 Pre-excitation syndrome
CPT/HCPCS: 80048; 80076; 85027; 85610; 85730; 86850; 86900; 86901; 99285; J7030